=== PATIENT | male | born 1985 | race Two or more races ===

== ENCOUNTER 2024-06-25 19:19 | Emergency (ER) | payer OTHER ==
[~2024-06-25] VITALS: Ht 154.9 cm; Wt 70.3 kg
[2024-06-25] MEDS ORDERED: DEXAMETHASONE SODIUM PHOSPHATE 4 MG/ML VIAL IM STA (21:42)
== END 2024-06-25 21:55 | disposition home or self-care (01) ==
LOC: ER 19:21
DX: L30.9 Dermatitis, unspecified (principal)